=== PATIENT | female | born 1965 | race Caucasian/White ===

== ENCOUNTER 2025-05-16 16:08 | Outpatient (CLI) | payer OTHER, SELFPAY | END 2025-05-16 16:09 | disposition home or self-care (01) | LOC: NFLDREF 16:09 | PROVIDERS: Visit Provider Internal Medicine | DX: R51.9 Headache, unspecified (principal); G89.29 Other chronic pain | CPT/HCPCS: 80053 ==

== ENCOUNTER 2025-06-17 14:45 | Outpatient (RCR) | payer OTHER, SELFPAY | END 2025-08-23 13:56 | disposition home or self-care (01) | PROVIDERS: Visit Provider Internal Medicine | DX: G44.209 Tension-type headache, unspecified, not intractable (principal); Z51.89 Encounter for other specified aftercare | CPT/HCPCS: 97110; 97140; 97161 ==

== ENCOUNTER 2025-08-09 11:51 | Emergency (ER) | payer OTHER, SELFPAY ==
[2025-08-09 11:58] VITALS: BP 137/81; PULSE 92; RESP 18; TEMP 36.4; O2SAT 98; BMI 25.7
--- NOTE | 2025-08-09 12:37 | CRLHL7_ITS ---
For Patients: As a result of the Century Cures Act, medical imaging exams and procedure reports are released immediately into your electronic medical record. You may view this report before your referring provider. If you have questions, please contact your health care provider. INDICATION: Throat pain. COMPARISON: None. TECHNIQUE: CT of the neck with contrast. Multiplanar axial, coronal, and sagittal reformats were reconstructed. Intravenous contrast: 74 mL Isovue 370. FINDINGS: Lymph nodes: Normal. Parotid and submandibular glands: Normal. Thyroid gland: Normal. Tonsils: Normal. Airway: Normal. Not deviated or narrowed. Normal epiglottis. Parapharyngeal spaces: Normal. Paranasal sinus: Normal. Soft tissues: Normal. No swelling. No foreign body. Arteries: No atherosclerosis. No arterial aneurysm, dissection, or thrombus. Veins: No deep vein thrombosis. Lung apices: Normal. Bones: No fractures. No focal bone lesions. Partially visualized median sternotomy wires. Disc and facet degeneration in the cervical spine. Multifocal dental amalgam. There are a few missing teeth. Impacted left maxillary, right maxillary, and left mandibular 3rd molars. No periapical lucencies or large dental caries. Included intracranial contents, orbits and mastoids: Normal. IMPRESSION: Normal neck CT without any acute findings. Please note that all CT scans at this facility use dose modulation, iterative reconstruction, and/or weight-based dosing when appropriate to reduce radiation dose to as low as reasonably achievable. Dictated by Jemma Duarte MD @ 08/09/2025 3:23:50 PM (Electronically Signed)
--- NOTE | 2025-08-09 12:54 | ED.GENADULT ---
HPI - General Adult General Chief complaint: Sore Throat Stated complaint: Throat pain Time Seen by Provider: 08/09/25 11:54 History of Present Illness HPI narrative: This 59-year-old female comes in reporting sore throat for the past 10 days. She states that it is been rather severe and currently rates it at 8/10 in severity. She went to urgent care about a week ago and a strep test was negative. She does not report any fevers, cough, or nasal congestion. She states that it feels like sometimes it is hard to swallow. She reports that she is otherwise in good health. Related Data Previous Rx's ?Medication ?Instructions ?Recorded ketorolac 10 mg tablet 10 mg PO TID 5 days #15 tabs 08/09/25 methylprednisolone 4 mg tablets in See Rx Instructions PO .COMPLEX 08/09/25 a dose pack (Medrol (Jus)) #21 ea Allergies Allergy/AdvReac Type Severity Reaction Status Date / Time No Known Drug Allergies Allergy Verified 08/02/25 14:05 Review of Systems Status of ROS: Reports: 10 or more systems reviewed and unremarkable except as noted in History and below Narrative: Constitutional: No fevers, no weight gain or loss. Eyes: No discharge. No vision changes. HENT: No congestion, no ear pain. Sore throat is described above. Cardiovascular: No chest pain, no palpitations. Respiratory: No shortness of breath, no wheezes, no cough. Gastrointestinal: No abdominal pain, no vomiting, no diarrhea. Genitourinary: No dysuria, no hematuria. Musculoskeletal: Normal range of motion. Skin: No rashes, no pruritis. Neurological: No dizziness, weakness, sensory change, speech change. Endo/Heme/Allergies: No bruising or bleeding. No polydipsia. Pysch: no suicidality, no anxiety, no insomnia. All other systems reviewed and are negative. [facility] Surgical History History of nasal surgery ?Z98.890 - Other specified postprocedural states (ICD-10) Exam Narrative: Exam Narrative: Constitutional: Well-developed, well-nourished, no acute distress. HEENT: Normocephalic, atraumatic. Oropharynx shows no sign of swelling or erythema. No purulence. Neck: Normal range of motion. Nontender. Supple. Heart: Regular. No murmurs. Normal rate. Intact distal pulses. Lungs: Clear to auscultation. No chest discomfort. No wheezes, rhonchi, or rales. Abdomen: Normal bowel sounds. Nontender. No rebound tenderness. Genitalia: Deferred. Back: No midline tenderness. Normal range of motion. Extremities: Normal range of motion. No injury. Skin: Intact. No rash. Warm. No erythema or pallor. Neurologic: No altered sensation. No weakness. Alert and oriented. Psychiatric: No suicidality. No anxiety or depression. No insomnia. Nursing notes and vitals signs are reviewed. Const: Vital Signs, click to edit/add: Vital Signs - 24 hr 08/09/25 11:58 Temperature 97.5 F L Pulse Rate [Pulse Oximeter] 92 Respiratory Rate 18 Blood Pressure [Ri ght Upper Arm] 137/81 Pulse Oximetry 98 Oxygen Delivery Me thod Room Air Course Vital Signs Vital signs: Initial Vital Signs Temperature 97.5 F L 08/09/25 11:58 Temperature Source Temporal Artery Scan 08/09/25 11:58 Pulse Rate 92 08/09/25 11:58 Respiratory Rate 18 08/09/25 11:58 Blood Pressure 137/81 08/09/25 11:58 Blood Pressure Mean 99 08/09/25 11:58 Blood Pressure Position Sitting 08/09/25 11:58 Pulse Oximetry 98 08/09/25 11:58 Oxygen Delivery Method Room Air 08/09/25 11:58 Vital Signs Temperature 97.5 F L 08/09/25 11:58 Pulse Rate 92 08/09/25 11:58 Respiratory Rate 18 08/09/25 11:58 Blood Pressure 137/81 08/09/25 11:58 Pulse Oximetry 98 08/09/25 11:58 Oxygen Delivery Method Room Air 08/09/25 11:58 Temperature 97.5 F L 08/09/25 11:58 Pulse Rate 92 08/09/25 11:58 Respiratory Rate 18 08/09/25 11:58 Blood Pressure 137/81 08/09/25 11:58 Pulse Oximetry 98 08/09/25 11:58 Oxygen Delivery Method Room Air 08/09/25 11:58 Medical Decision Making MDM Narrative Medical decision making narrative: This patient comes in reporting rather severe sore throat for about 10 days. She went a 2nd time to urgent care and was instructed to come here. She arrives with normal vital signs and actually her exam is also rather normal. I did discuss lab and imaging options but gave reassurance is with regard to her exam and vital signs. Since this is been going for about 10 days she does want have imaging studies. An IV was established where she received contrast for CT imaging of soft tissue of her neck. This returns with no acute findings. Additionally lab results are also normal. This was very reassuring to the patient but she continues to have rather significant sore throat symptoms. It does not appear that this is an infectious condition as she does not have any typical viral symptoms and her strep test was negative. Also her oropharynx appears to be normal without any erythema, exudate, or swelling. I did prescribe a Medrol Dosepak and Toradol for symptomatic relief. Lab Data Labs: Lab Results 08/09/25 08/09/25 Range/Units 12:50 12:55 WBC 10.82 (4.50-11.00) K/uL RBC 4.97 (4.00-5.20) m/uL Hgb 13.9 (12.0-16.0) gm/dL Hct 43.0 (33.0-51.0) % MCV 87 (80-100) fL MCH 28 (26-34) pg MCHC 32 (32-36) gm/dL RDW Coeff of Yobani 13.6 (11.5-15.5) % Plt Count 309 (140-440) K/uL Neut % (Auto) 73.7 H (42.0-72.0) % Lymph % (Auto) 20.2 (20-44) % Izard % (Auto) 5.1 (0.0-11.0) % Eos % (Auto) 0.4 (0.0-7.0) % Baso % (Auto) 0.4 (0.0-3.0) % Neut # (Auto) 8.00 H (1.7-7.0) K/uL Lymph # (Auto) 2.19 (0.90-2.90) K/uL Izard # (Auto) 0.60 (0.00-0.90) K/UL Eos # (Auto) 0.04 (0.00-0.50) K/uL Baso # (Auto) 0.04 (0.00-0.30) K/uL Abs Immat Gran (auto) 0.02 (0.00-0.30) K/uL Imm/Tot Granulo (auto) 0.2 % POC Creatinine 0.9 (0.6-1.3) mg/dl Imaging Data CT Soft Tissue Neck: Radiologist's impression: Normal neck CT without any acute findings. Discharge Plan Discharge Clinical Impression: Pharyngitis Patient Disposition: Home, Self-Care Condition: Stable Additional Instructions: Take medications as prescribed. Use sign-std-nezctlu medicines also as needed and directed. Follow up with MD or historian research assistant if symptoms are persistent. Return if worsening. Prescriptions: New ketorolac 10 mg tablet 10 mg PO TID 5 Days Qty: 15 0RF methylprednisolone [Medrol (Jus)] 4 mg tablets,dose pack See Rx Instructions .ROUTE .COMPLEX Qty: 21 0RF Rx Instructions: orally per package directions Follow Up/Referrals: Provider,Not a Local [Primary Care Provider, Family Practice] Stand Alone Forms: [employer]th Info Instructions
--- OUTSIDE RECORDS SUMMARY | 2025-08-09 13:03 | XMS_ITS | Clinical Summary ---
Author Organization [employer] [facility] Address [address] [place] [id number] Care Team Providers Care Outside Residential Sales Professional Name Role Phone Severo Carroll MD Unavailable [phone] Health, Family Primary Care Provider Unavailabl e Allergies No known active allergies Medications aspirin enteric coated 81 mg tablet Take 1 tablet by mouth once daily with a meal. 0 04/23/2011 Active ibuprofen (ADVIL) 200 mg tablet Take 1 tablet by mouth 4 times daily if needed. 0 04/23/2011 Active multivitamin (MVI) tablet Take 1 tablet by mouth once daily. 0 04/23/2011 Active nitroglycerin (NITROSTAT) 0.[address] 1 tablet under the tongue every 5 minutes if needed for Chest Pain. 1 Bottle 0 04/23/2011 Active Active Problems Problem Noted Date Diagnosed Date Chest pain, unspecified 04/23/2011 Family History Medical History Relation Name Comments Good Health Brother Other Father migraines Diabetes Mother Hypertension Mother Relation Name Status Comments Brother Father Mother Social History Tobacco Use Types Packs/Day Years Used Date Smoking Tobacco: Never Smokeless Tobacco: Never Alcohol Use Standard Drinks/Week Comments Yes 1 (1 standard drink = 0.6 oz pur e alcohol) Comments No Sex and Gender Information Value Date Recorded Sex Assigned at Not on file Legal Sex Female 6:15 AM [employer] Gender Identity Not on file Sexual Orientation Not on file Obstetrics History Last Filed Vital Signs Vital Sign Reading Time Taken Comments Blood Pressure 138/96 02/05/2016 1:45 PM CDT Pulse 89 02/05/2016 1:45 PM CDT Temperature 36.7 C (98.1 F) 02/05/2016 1:45 PM CDT Respiratory Rate 14 02/05/2016 1:45 PM CDT Oxygen Saturation 95% 02/05/2016 1:45 PM CDT Inhaled Oxygen Concentration - - Weight 68 kg (150 lb) 02/05/2016 1:45 PM CDT Height 162.6 cm (5' 4) 02/05/2016 1:45 PM CDT Body Mass Index 25.75 02/05/2016 1:45 PM CDT Plan of Treatment Health Maintenance Due Date Last Done Comments Tetanus booster 1975 Depression screening for age 12+ 1976 HIV for age 15-65 1979 Hepatitis C screening for age 18-79 1982 Colonoscopy through age 75 2009 Lipids for age 45-75 2009 Pneumococcal series for age 50+ (1 of 1 - PCV) 2014 Zoster (shingles) series for age 50+ (1 of 2) 2014 BMI (ht and wt on same day) for age 18+ 02/04/2017 02/05/2016 Pap test for age 21-65 01/20/2021 8, 01/20/2018, 10/26/2014, Additional history exists COVID-19 vaccine series ( - 2024- season) 2025 Influenza Vaccine (#1) 2025 Mammogram for age 45-75 02/16/2026 02/17/20 25, 11/19/2023, 11/21/2009, Additional history exists RSV vaccine for adults or (1 - 1-dose 75+ series) 2039 Hepatitis B series for 19+ Aged Out N o longer eligible based on patient's age to complete this topic Procedures Procedure Name Priority Date/Time Associated Diagnosis Comments XR MAMMO MIA BILAT SCREEN Routine 02/16/2025 8:58 AM CDT Visit for screening mammogram DIRECTOR NURSING SERVICE THIN PREP PAP SCREEN IMAGED Routine 01/20/2018 10:15 AM CDT from Last 3 Months or Most Recently Relevant to Health Maintenance Results * XR MAMMO MIA BILAT SCREEN (02/16/2025 8:58 AM CDT) Anatomical Region Laterality Modality BREASTS, Breast Left, Breast Right Bilateral Mammography Impressions 02/17/2025 8:24 AM CDT There is no radiographic evidence for malignancy. Recommend annual mammograms. MAMMOGRAM ASSESSMENT: ACR 1 Negative PATIENTS: You will also receive a letter with your examination results in an easy to read format. If you have questions about your results, please contact your referring provider. Narrative 02/17/2025 8:24 AM CDT For Patients: As a result of the Century Cures Act, medical imaging exams and procedure reports are released immediately into your electronic medical record. You may view this report before your referring provider. If you have questions, please contact your health care provider. XR MAMMO MIA BILAT SCREEN [[id number]] CLINICAL HISTORY: This is an asymptomatic 59 y.o. patient. INDICATION FOR EXAM: Mammogram Screening. TECHNIQUE: CC and MLO views were obtained. This study was evaluated with the assistance of Computer-Aided Detection. Breast Tomosynthesis was used in interpretation. COMPARISON FILM: Yes 11/19/23 [facility] 11/18/18 [facility] FINDINGS: There are scattered areas of fibroglandular density. There are no dominant masses, suspicious micro calcifications or areas of architectural distortion. Delfina Brambila PA-C MAMMO Final Result * DIRECTOR NURSING SERVICE THIN PREP PAP SCREEN IMAGED (01/20/2018 10:15 AM CDT) Case Report Gynecologic Cytology Report Case: [id number] Authorizing Provider: Joie Garrett Collected: 01/20/2018 1015 First Screen: Vineet Hicks Received: 01/22/2018 1205 Specimen: DIRECTOR NURSING SERVICE ThinPrep Vial Screening, Cervical/Vaginal 01/28/2018 5:21 PM CDT [email or web address] INTERPRETATION/ RESULT NEGATIVE FOR INTRAEPITHELIAL LESION OR MALIGNANCY (NIL) (none) 01/28/2018 5:21 PM CDT [email or web address] at 1721 CDT SPECIMEN ADEQUACY Satisfactory for evaluation Endocervical component present 01/28/2018 5:21 PM CDT [facility] HPV REQUEST HPV and PAP 01/28/2018 5:21 PM CDT [facility] Last Pap Date 01/28/2018 5:21 PM CDT [facility] Comment:10/13 Menstrual Status Hysterectomy-cerv ix present 01/28/2018 5:21 PM CDT [facility] Automated Review Successful 01/28/2018 5:21 PM T [facility] Comment:Specimen processed s uccessfully by automated comber fixer device, [email or web address] Imaging System, [employer] ANCILLARY TESTING DIRECTOR NURSING SERVICE HPV Ordered, Please see separate report 01/28/2018 5:21 PM CDT [facility] Note The pap test is a screening technique, not a diagnostic procedure. It is used primarily to screen for squamous cancers and precursor lesions. Published studies have shown that it is subject to both false negative and false positive results. The pap test should not be used as the sole means to diagnose or exclude pre-malignant and malignant lesions. Interpreted at [facility] ([facility], [facility], [facility], [facility], [facility], [facility], [facility]) 01/28/2018 5:21 PM T [facility] Other (Cervical/Vagina l) 01/20/2018 10:15 AM CDT 01/22/2018 12:05 PM CDT Joie Garrett PATHOLOGY/CYTOLOGY Final Result [facility] [address] [place] [address], [place] from Last 3 Months or Most Recently Relevant to Health Maintenance Insurance [id number]ER [id number] Care Teams Outside Residential Sales Professional Relationship Specialty Start Date End Date Health, Family PCP - General 02/05/16 Severo Carroll MD [address] [place] [address] [place] [address] Cardiovascular Disease 10/17/11
[2025-08-09 13:06] LABS: Hematocrit* 43.0 % (33.0-51.0); Hemoglobin* 13.9 gm/dL (12.0-16.0); Immature Granulocytes Abs Auto 0.02 K/uL (0.00-0.30); Immature Granulocytes Pct Auto 0.2 %; Lymphocytes Absolute Auto 2.19 K/uL (0.90-2.90); Mean Corpuscular HGB Conc 32 gm/dL (32-36); Mean Corpuscular Hemoglobin 28 pg (26-34); Mean Corpuscular Volume 87 fL (80-100); RDW Coefficient of Variation % 13.6 % (11.5-15.5); Red Blood Count* 4.97 m/uL (4.00-5.20); White Blood Count* 10.82 K/uL (4.50-11.00)
[2025-08-09 13:06] LABS: Creatinine, Point-of-Care* 0.9 mg/dl (0.6-1.3)
[2025-08-09 13:08] LABS: Slide Review Reflex No
== END 2025-08-09 15:41 | disposition home or self-care (01) ==
PROVIDERS: Emergency Provider Emergency Medicine Emergency Medical Services
DX: J02.9 Acute pharyngitis, unspecified (principal)
CPT/HCPCS: 36415; 70491; 82565; 85025; 99284; 99285; Q9967